=== PATIENT | female | born 2000 | race Caucasian/White ===

== ENCOUNTER 2024-09-13 07:16 | Day surgery (SDC) | payer OTHER ==
[2024-09-13] MEDS ORDERED: ACETAMINOPHEN 500 MG TAB ONE (07:47)
[2024-09-13] MEDS: Ringers Lactate 1,000 ML IV ONE (08:00)
[2024-09-13] MEDS ORDERED: propofoL 200 MG/20 ML VIAL IV ONE (08:55)
[2024-09-13] MEDS ORDERED: MIDAZOLAM HCL 2 MG/2 ML INJ ONE (08:55)
[2024-09-13] MEDS ORDERED: dexAMETHasone 10 MG/ML VIAL ONE (08:55)
[2024-09-13] MEDS ORDERED: FENTANYL CITR 100 MCG/2 ML ONE (08:55)
[2024-09-13] MEDS ORDERED: ONDANSETRON 4 MG/2 ML VIAL ONE (08:55)
[2024-09-13] MEDS ORDERED: LIDOCAINE 1% MPF 5 ML VIAL ONE (08:55)
[2024-09-13] MEDS: BUPIVACAINE 0.5% PF 10 ML VIAL ONE (09:30)
[2024-09-13] MEDS ORDERED: EPINEPHRINE 1 MG/ML VIAL ONE ×2 (10:08→10:38)
[2024-09-13] MEDS: MEPERIDINE HCL 25 MG/ML SYR ONE (10:40)
[2024-09-13] MEDS: HYDROMORPHONE HCL 1 MG/ML INJ ONE (10:41)
--- NOTE | 2024-09-13 10:44 | P.OP ---
Date of Service: 09/13/24 Preoperative diagnosis: Chronic tonsillitis Postoperative diagnosis: Same with tonsil stones Procedure: Tonsillectomy Surgeon: Hallie Kemp MD Nurse Licensed Practical: None Anesthesia: General via endotracheal tube IV fluids: See anesthesia record Estimated blood loss: Minimal, less than 5 mL Specimen: Bilateral tonsils Findings: Chronically inflamed and nodular tonsils. Bleeding at left inferior pole controlled with direct pressure applied for 10 minutes continuously Implants: None Indication: patient with persistent symptoms and findings in spite of good medical management. Details of operation: The patient was brought to the operating room and placed under general anesthesia via oral endotracheal tube. The head of bed was turned 90 degrees. A shoulder roll was placed and the neck was extended. A head drape was applied. The McIvor mouthgag was placed and suspended from the Mckeon stand. The oxygen concentration was confirmed with the anesthesiologist and was less than 40%. Weight-based dexamethasone was administered by the anesthesiologist. The soft palate was palpated and there was no submucous cleft. A red rubber catheter was placed in the nose and the tip withdrawn through the mouth and secured to the head drape for retraction of the soft palate. The tonsils were noted to be moderately enlarged and chronically inflamed with deep crypts and multiple tonsil stones. The left tonsil was grasped with a straight Allis clamp. The Bovie electrocautery was used to incise the mucosa over the anterior pillar and identified the tonsillar capsule. The tonsil was dissected using cautery and blunt dissection until free from soft tissue attachments. A tonsil ball was placed to aid in hemostasis. In the inferior pole there was moderate bleeding and a tonsil sponge soaked with 1-1000 epinephrine was used to apply pressure for 10 minutes continuously. After release of the pressure the area was lightly cauterized and appeared to be hemostatic. The right tonsil was removed in a similar manner. The right tonsil did not have any significant or severe areas of bleeding The oropharynx was irrigated with cold saline. After suctioning, a Ida sump orogastric tube was passed for decompression of the stomach. The red rubber catheter was removed and used to suction the oropharynx, nasopharynx, and nasal cavities. The McIvor mouthgag was removed. There was no evidence of injury to the teeth, lips, or tongue. The mandible was mobile. The patient was then awakened from anesthesia and extubated in the operating room, taken to the recovery room in stable condition. Disposition: The patient will be discharged home later today in the care of their family with written postoperative instructions and appropriate pain medications. They will follow-up in Dr. Kemp's office in approximately 1 month. They are instructed to contact Dr. Kemp's office for any bleeding or other concerns.
[2024-09-13] MEDS: ONDANSETRON 4 MG/2 ML VIAL ONE (10:45)
[2024-09-13] MEDS: HYDROMORPHONE HCL 2 MG/ML inj ONE (10:51)
[2024-09-13] MEDS: MORPHINE 4 MG/ML SYR ONE (11:21)
[2024-09-13 13:30] VITALS: O2SAT 100
[2024-09-13 13:32] VITALS: BP 129/80; TEMP 97
[2024-09-13] MEDS: HYDROCOD 2.5mg-ACETAMIN 108mg/5mL Soln ONE (13:38)
== END 2024-09-13 12:40 | disposition home or self-care (01) ==
LOC: OR 07:16
PROVIDERS: ATTEND Otolaryngology
PROC: 0CTPXZZ Resection of Tonsils, External Approach (ICD-10-PCS; principal; 2024-09-13 08:45)
DX: J35.01 Chronic tonsillitis (principal); J35.8 Other chronic diseases of tonsils and adenoids
CPT/HCPCS: 88304; 42826; J2704; J2003; J2250; J1171 ×2; J3010; J1100; J2175; J0171 ×2; J2405 ×2; J7120

== ENCOUNTER 2024-09-14 22:56 | Emergency (ER) | payer OTHER ==
--- OUTSIDE RECORDS SUMMARY | 2024-09-14 22:59 | XMS REPORT | Continuity of Care Document ---
Author Name Unknown Address [address] [facility] [address] [place] [address] [facility] [address] [place] [address] Care Team Providers Care Regional Marketing Director Name Role Phone Michela Lee Primary Care Physician Logan Attending Clinician Unavailable YANY Attending Clinician Unavailable MICHELA LEE Attending Clinician Unavailable Karuna CARRENO, Reinaldo Banegas Attending Clinician Unavail able JANET KANG Attending Clinician Unavailable JANET KANG Attending Clinician Unavailable Claus VIERA, Cassi Leal Attending Clinician [phone] Janet Kang DO Attending Clinician Drew Monge Attending Clinician Unavailable TOM CARO Attending Clinician Unavailable CAITLIN PEPE Attending Clinician Unavailable RIMA DE DIOS Attending Clinician Unavailable DAISY COLLADO Attending Clinician Unavailab JOSEP Newman VKelechi Attending Clinician Unavailable Logan Admitting Clinician Unavailable YANY Admitting Clinician Unavailable JANET KANG Admitting Clinician Unavailable Janet Kang DO Admitting Clinician Payers Payer Name Policy Type Policy Number Effective Date Expirati on Date Source [facility] [id number] [facility] ([place]) [id number] [place] [id number] 2021 00:00:00 [place] [id number] 2021 00:00:00 Problems Condition Name Condition Details Condition Category Status Onset Date Resolution Date Last Treatment Date Treating Clinician Comments Source Anxiety Anxiety Disease Recurre wve 05-17 00:00: 00 [facility] PTSD (post-trau matic stress disorder) PTSD (post-trau matic stress disorder) Disease Recurre nce 05-17 00:00: 00 [facility] Alcohol intoxicati on Alcohol Intoxicati on Problem Active 05-17 00:00: 00 [facility] Nausea and vomiting Nausea and Vomiting Problem Active 05-17 00:00: 00 [facility] Overdose Overdose Problem Active 05-17 00:00: 00 [facility] Anxiety Anxiety Problem Active 405 00:00: 00 [facility] Viral exanthem Viral Exanthem Problem Active [facility] Pharyngiti s Pharyngiti s Problem Active [facility] Tonsilliti s Tonsilliti s Problem Active [facility] Upper respirator y infection Upper Respirator y Infection Problem Active [facility] Influenza Influenza Problem Active [facility] Fatigue Fatigue Problem Active [facility] Chest pain Chest Pain Problem Active [facility] Allergies, Adverse Reactions, Alerts Allergy Name Allergy Type Status Severity Reaction(s) Onset Date Inactive Date Treating Clinician Comments Source NO KNOWN ALLERGIE S Drug Class Active [facility] Social History Social Habit Start Date Stop Date Quantity Comments Source Gender identity [facility] Sexual orientation [facility] History of Social function 2023-05-17 00:00:00 2023-05-17 00:00:00 [facility] Sex Assigned At 2002 00:00:00 2000 00:00:00 [facility] Smoking Status Start Date Stop Date Source Tobacco smoking consumption unknown [facility] Never Smoker [facility] Medications Ordered Medication Name Filled Medication Name Start Date Stop Date Current Medication? Ordering Clinician Indication Dosage Frequency Signature (SIG) Comments Components Source escitalopra m oxalate (LEXAPRO) 20 mg tablet 05-18 11:59: 07 Yes 20mg Take 1 tablet by mouth in the morning. [facility] nicotine (NICODERM) 14 mg/24 hr patch 1 Patch 05-18 02:45: 00 Yes 1{patch } 1 Patch, Topical, Administer over 24 Hours, Q24H, First dose on Mon05/17/23 at 2145, Until Discontinu ed, Routine [facility] hydrOXYzine (ATARAX) tablet 20 mg 05-18 01:38: 39 Yes 20mg 20 mg, Oral, Q8HPRN, Starting on Mon05/17/23 at 2038, Until Discontinu ed, Routine, Anxiety [facility] KCL (KLOR-CON M20) tablet 40 mEq 05-17 22:30: 00 05-17 22:32 :00 No 40meq 40 mEq, Oral, ONCE, 1 dose, On Mon05/17/23 at 1730, Routine [facility] enoxaparin (LOVENOX) injection 40 mg 05-17 22:00: 00 Yes 40mg 40 mg, Subcutaneo us, DAILY, First dose on Mon05/17/23 at 1700, Until Discontinu ed, Routine [facility] escitalopra m oxalate (LEXAPRO) tablet 20 mg 05-17 17:30: 00 Yes 20mg 20 mg, Oral, DAILY, First dose on Mon05/17/23 at 1230, Until Discontinu ed, Routine [facility] trimethoben zamide (TIGAN) injection 200 mg 05-17 11:37: 45 Yes 200mg 200 mg, Intramuscu lar, Q6HPRN, Starting on Mon05/17/23 at 0637, Until Discontinu ed, Routine, Nausea and Vomiting (N/V) [facility] lactated ringers IV infusion 1,000 mL 05-17 11:30: 00 05-18 06:47 :00 No 1000mL at 999 mL/hr, 1,000 mL, Intravenou s, ONCE, 1 dose, On Mon05/17/23 at 0630, Routine [facility] haloperidol lactate (HALDOL) injection 2 mg 05-17 11:15: 00 05-17 11:29 :00 No 2mg 2 mg, Intramuscu lar, ONCE, 1 dose, On Mon05/17/23 at 0615, Routine [facility] metoclopram dylan HCl (REGLAN) injection 10 mg 05-17 08:37: 00 05-17 08:44 :00 No 10mg 10 mg, Slow IV Push, ONCE, 1 dose, On Mon05/17/23 at 0345, ROMEO [facility] proMETHazin e (PHENERGAN) 25 mg in NaCl 0.9% (NS) 50 mL IV piggyback 05-17 06:47: 00 Yes 25mg 25 mg, IV Piggyback, Q4HPRN, Starting on Mon05/17/23 at 0147, Until Discontinu ed, ROMEO, Nausea and Vomiting (N/V), N/V unresponsi ve to Ondansetro n [facility] metoclopram dylan HCl (REGLAN) injection 10 mg 05-17 06:30: 00 05-17 06:32 :00 No 10mg 10 mg, Slow IV Push, ONCE, 1 dose, On Mon05/17/23 at 0130, ROMEO [facility] ondansetron (ZOFRAN (PF)) injection 4 mg 05-17 05:45: 00 05-17 05:33 :00 No 4mg 4 mg, Slow IV Push, ONCE, 1 dose, On Mon05/17/23 at 0045, ROMEO [facility] NaCl 0.9% (NS) IV infusion 1,000 mL 05-17 02:45: 00 Yes 1000mL at 999 mL/hr, Intravenou s, CONTINUOUS , Starting on Mon05/16/23 at 2145, Until Discontinu ed, Routine [facility] ondansetron (ZOFRAN (PF)) injection 4 mg 05-17 02:00: 00 05-17 01:45 :00 No 4mg 4 mg, Slow IV Push, ONCE, 1 dose, On Mon05/16/23 at 2100, ROMEO [facility] activated charcoal-so rbitoL (ACTIDOSE/S ORBITAL) 25 gram/120 mL suspension 50 g 05-17 01:45: 00 05-17 03:00 :00 No 50g 50 g, Oral, ONCE, 1 dose, On Mon05/16/23 at 2045, [facility] venlafaxine ER 75 mg capsule,ext ended release 24 hr TAKE 1 CAPSULE BY MOUTH EVERY DAY venlafaxine ER 75 mg capsule,ext ended release 24 hr TAKE 1 CAPSULE BY MOUTH EVERY DAY No venlafaxin e ER 75 mg capsule,ex tended release 24 hr TAKE 1 CAPSULE BY MOUTH EVERY DAY [facility] amoxicillin 875 mg tablet Take 1 tablet every 12 hours by oral route for 10 days. amoxicillin 875 mg tablet Take 1 tablet every 12 hours by oral route for 10 days. No 1 Q12H amoxicilli n 875 mg tablet Take 1 tablet every 12 hours by oral route for [address] [facility] [place] 1/20 (28) 1 mg-20 mcg (21)/75 mg (7) tablet TAKE 1 TABLET BY MOUTH EVERY DAY DIRECTED [place] 1/20 (28) 1 mg-20 mcg (21)/75 mg (7) tablet TAKE 1 TABLET BY MOUTH EVERY DAY DIRECTED No [place] 1/20 (28) 1 mg-20 mcg (21)/75 mg (7) tablet TAKE 1 TABLET BY MOUTH EVERY DAY DIRECTED [facility] venlafaxine ER 75 mg capsule,ext ended release 24 hr TAKE 1 CAPSULE BY MOUTH EVERY DAY venlafaxine ER 75 mg capsule,ext ended release 24 hr TAKE 1 CAPSULE BY MOUTH EVERY DAY No venlafaxin e ER 75 mg capsule,ex tended release 24 hr TAKE 1 CAPSULE BY MOUTH EVERY DAY [facility] Immunizations Ordered Immunization Name Filled Immunization Name Date Status Comments Source meningococcal MCV4P meningococcal MCV4P 11:01:00 Completed [facility] Tdap Tdap 2015-02-02 16:30:00 Completed [facility] varicella varicella 2015-02-02 16:30:00 Completed [facility] HPV9 HPV9 Unknown Completed [facility] meningococcal MCV4P - ML meningococcal MCV4P - ML Unknown Completed [facility] varicella - ML varicella - ML Unknown Completed [facility] DTaP, unspecified formulation - ML DTaP, unspecified formulation - ML Unknown Completed [facility] Tdap - ML Tdap - ML Unknown Completed [facility] vaccinia immune globulin - ML vaccinia immune globulin - ML Unknown Completed [facility] Hep A, ped/adol, 2 dose - ML Hep A, ped/adol, 2 dose - ML Unknown Completed [facility] IPV - ML IPV - ML Unknown Completed [facility] Hib (HbOC) - ML Hib (HbOC) - ML Unknown Completed [facility] MMR - ML MMR - ML Unknown Completed [facility] pneumococcal conjugate PCV 7 - ML pneumococcal conjugate PCV 7 - ML Unknown Completed [facility] Hep B, adolescent or pediatric - ML Hep B, adolescent or pediatric - ML Unknown Completed [facility] Hep B, unspecified formulation - ML Hep B, unspecified formulation - ML Unknown Completed [facility] Vital Signs Vital Name Observation Time Observation Value Comments S ource BP Diastolic 2024-09-02 00:00:00 71 mm[Hg] [facility] BMI (Body Mass Index) 2024-09-02 00:00:00 22.7 kg/m2 [facility] BP Systolic 2024-09-02 00:00:00 109 mm[Hg] [facility] Height 2024-09-02 00:00:00 65 [in_i] [facility] Body Weight 2024-09-02 00:00:00 2183 [oz_av] [facility] BP Systolic 2024-04-30 00:00:00 102 mm[Hg] [facility] BMI (Body Mass Index) 2024-04-30 00:00:00 22.4 kg/m2 [facility] Body Weight 2024-04-30 00:00:00 134.8 [lb_av] [facility] Height 2024-04-30 00:00:00 65 [in_i] [facility] BP Diastolic 2024-04-30 00:00:00 67 mm[Hg] [facility] BMI (Body Mass Index) 2024-01-09 00:00:00 22.5 kg/m2 [facility] Body Weight 2024-01-09 00:00:00 2160 [oz_av] [facility] BP Systolic 2024-01-09 00:00:00 123 mm[Hg] [facility] Height 2024-01-09 00:00:00 65 [in_i] [facility] BP Diastolic 2024-01-09 00:00:00 73 mm[Hg] [facility] BMI (Body Mass Index) 2023-11-08 00:00:00 22.3 kg/m2 [facility] BP Systolic 2023-11-08 00:00:00 130 mm[Hg] [facility] Height 2023-11-08 00:00:00 65 [in_i] [facility] BP Diastolic 2023-11-08 00:00:00 83 mm[Hg] [facility] Body Weight 2023-11-08 00:00:00 134 [lb_av] [facility] BMI (Body Mass Index) 2023-09-27 00:00:00 23.1 kg/m2 [facility] BP Systolic 2023-09-27 00:00:00 107 mm[Hg] [facility] Height 2023-09-27 00:00:00 65 [in_i] [facility] BP Diastolic 2023-09-27 00:00:00 69 mm[Hg] [facility] Body Weight 2023-09-27 00:00:00 2224 [oz_av] [facility] BP Diastolic 2023-09-18 00:00:00 78 mm[Hg] [facility] Body Weight 2023-09-18 00:00:00 151 [lb_av] [facility] Height 2023-09-18 00:00:00 65 [in_i] [facility] BMI (Body Mass Index) 2023-09-18 00:00:00 25.1 kg/m2 [facility] BP Systolic 2023-09-18 00:00:00 119 mm[Hg] [facility] Height 2023-08-28 00:00:00 65 [in_i] [facility] BMI (Body Mass Index) 2023-08-28 00:00:00 24.5 kg/m2 [facility] BP Diastolic 2023-08-28 00:00:00 63 mm[Hg] [facility] Body Weight 2023-08-28 00:00:00 2352 [oz_av] [facility] BP Systolic 2023-08-28 00:00:00 97 mm[Hg] [facility] BP Diastolic 2023-05-25 00:00:00 75 mm[Hg] [facility] Height 2023-05-25 00:00:00 65 [in_i] [facility] BMI (Body Mass Index) 2023-05-25 00:00:00 25.3 kg/m2 [facility] BP Systolic 2023-05-25 00:00:00 117 mm[Hg] [facility] Body Weight 2023-05-25 00:00:00 2432 [oz_av] [facility] Heart rate 2023-05-18 15:00:00 96 /min [facility] Respiratory rate 2023-05-18 15:00:00 24 /min [facility] Oxygen saturation in Arterial blood by Pulse oximetry 2023-05-18 15:00:00 98 /min [facility] Systolic blood pressure 2023-05-18 13:00:00 133 mm[Hg] [facility] Diastolic blood pressure 2023-05-18 13:00:00 91 mm[Hg] [facility] Body temperature 2023-05-18 13:00:00 36.61 Arlet [facility] Body height 2023-05-17 01:35:00 162.6 cm [facility] Body weight 2023-05-17 01:35:00 63.504 kg [facility] BMI 2023-05-17 01:35:00 24.03 kg/m2 [facility] BP Diastolic 2023-04-24 00:00:00 86 mm[Hg] [facility] Height 2023-04-24 00:00:00 65 [in_i] [facility] BMI (Body Mass Index) 2023-04-24 00:00:00 24.1 kg/m2 [facility] BP Systolic 2023-04-24 00:00:00 129 mm[Hg] [facility] Body Weight 2023-04-24 00:00:00 145 [lb_av] [facility] BP Diastolic 2022-10-20 00:00:00 74 mm[Hg] [facility] Height 2022-10-20 00:00:00 65 [in_i] [facility] BMI (Body Mass Index) 2022-10-20 00:00:00 21 kg/m2 [facility] BP Systolic 2022-10-20 00:00:00 113 mm[Hg] [facility] Body Weight 2022-10-20 00:00:00 126 [lb_av] [facility] BP Diastolic 2022-06-21 00:00:00 79 mm[Hg] [facility] Height 2022-06-21 00:00:00 65 [in_i] [facility] BMI (Body Mass Index) 2022-06-21 00:00:00 18.8 kg/m2 [facility] BP Systolic 2022-06-21 00:00:00 119 mm[Hg] [facility] Body Weight 2022-06-21 00:00:00 113 [lb_av] [facility] BP Diastolic 2022-03-03 00:00:00 65 mm[Hg] [facility] Height 2022-03-03 00:00:00 65 [in_i] [facility] BMI (Body Mass Index) 2022-03-03 00:00:00 20.1 kg/m2 [facility] BP Systolic 2022-03-03 00:00:00 118 mm[Hg] [facility] Body Weight 2022-03-03 00:00:00 1936 [oz_av] [facility] Height 2022-02-15 00:00:00 65 [in_i] [facility] BMI (Body Mass Index) 2022-02-15 00:00:00 19.6 kg/m2 [facility] Body Weight 2022-02-15 00:00:00 118 [lb_av] [facility] Height 2021-11-09 00:00:00 65 [in_i] [facility] BP Diastolic 2021-10-19 00:00:00 68 mm[Hg] [facility] Height 2021-10-19 00:00:00 65 [in_i] [facility] BMI (Body Mass Index) 2021-10-19 00:00:00 19 kg/m2 [facility] BP Systolic 2021-10-19 00:00:00 101 mm[Hg] [facility] Body Weight 2021-10-19 00:00:00 114 [lb_av] [facility] BP Diastolic 2021-05-25 00:00:00 68 mm[Hg] [facility] Height 2021-05-25 00:00:00 65 [in_i] [facility] BMI (Body Mass Index) 2021-05-25 00:00:00 19 kg/m2 [facility] BP Systolic 2021-05-25 00:00:00 107 mm[Hg] [facility] Body Weight 2021-05-25 00:00:00 1827 [oz_av] [facility] BP Diastolic 2021-04-28 00:00:00 61 mm[Hg] [facility] Height 2021-04-28 00:00:00 65 [in_i] [facility] BMI (Body Mass Index) 2021-04-28 00:00:00 18.8 kg/m2 [facility] BP Systolic 2021-04-28 00:00:00 103 mm[Hg] [facility] Body Weight 2021-04-28 00:00:00 1808 [oz_av] [facility] BP Systolic 2021-02-08 00:00:00 97 mm[Hg] [facility] Body Weight 2021-02-08 00:00:00 114.2 [lb_av] Shira [facility] BP Diastolic 2021-02-08 00:00:00 72 mm[Hg] [facility] Height 2021-02-08 00:00:00 65 [in_i] [facility] BMI (Body Mass Index) 2021-02-08 00:00:00 19 kg/m2 [facility] BP Diastolic 2020-12-30 00:00:00 69 mm[Hg] [facility] Height 2020-12-30 00:00:00 65 [in_i] [facility] BMI (Body Mass Index) 2020-12-30 00:00:00 18.6 kg/m2 [facility] BP Systolic 2020-12-30 00:00:00 111 mm[Hg] [facility] Body Weight 2020-12-30 00:00:00 1792 [oz_av] [facility] BP Diastolic 2020-02-17 00:00:00 82 mm[Hg] [facility] Height 2020-02-17 00:00:00 65 [in_i] Freddie [facility] BMI (Body Mass Index) 2020-02-17 00:00:00 19.2 kg/m2 [facility] BP Systolic 2020-02-17 00:00:00 125 mm[Hg] Tawanda [facility] Body Weight 2020-02-17 00:00:00 115.2 [lb_av] M [facility] BP Diastolic 2019-08-01 00:00:00 71 mm[Hg] [facility] Height 2019-08-01 00:00:00 65 [in_i] [facility] BMI (Body Mass Index) 2019-08-01 00:00:00 20.1 kg/m2 [facility] BP Systolic 2019-08-01 00:00:00 109 mm[Hg] [facility] Body Weight 2019-08-01 00:00:00 1936 [oz_av] [facility] Procedures Procedure Date / Time Performed Performing Clinician Source MAGNESIUM 2023-05-18 10:48:00 Tiffanie Mcduffie [facility] BASIC METABOLIC PANEL (NA, K, CL, CO2, GLUCOSE, BUN, CREATININE, CA) 2023-05-18 10:48:00 Tiffanie Mcduffie [facility] ACETAMINOPHEN 2023-05-18 10:48:00 Tiffanie Mcduffie [facility] BILI UNCONJUGATED/BILI CONJUG 2023-05-18 01:29:00 Cassi Devlin [facility] COMP. METABOLIC PANEL ([id number]) 2023-05-18 01:29:00 Cassi Devlin [facility] ACETAMINOPHEN 2023-05-18 01:29:00 Cassi Devlin [facility] HEPATIC FUNCTION PANEL ([id number]) (ALB,T.PRO,BILI T,BU/BC,ALT,AST,ALK PHOS) 2023-05-17 20:12:00 Dawit Crane [facility] BASIC METABOLIC PANEL (NA, K, CL, CO2, GLUCOSE, BUN, CREATININE, CA) 2023-05-17 20:12:00 Dawit Crane [facility] ACETAMINOPHEN 2023-05-17 20:11:00 Cassi Devlin [facility] PROTHROMBIN TIME / INR 2023-05-17 20:11:00 Marcelina Devlin [facility] PROTHROMBIN TIME / INR 2023-05-17 13:14:00 Luis Crane [facility] MRSA / MSSA SCREEN BY PCR, NARES 2023-05-17 12:28:00 Jack Deal [facility] OSMOLALITY, SERUM OR PLASMA 2023-05-17 12:28:00 Royce Txglenroy [facility] COMP. METABOLIC PANEL ([id number]) 2023-05-17 12:28:00 Jack Deal [facility] TEST, URINE 2023-05-17 10:36:00 Jack Mccoy [facility] URINE DRUG (IMMUNOASSAY) - COMPREHENSIVE DRUG SCREEN W/O REFLEX 2023-05-17 05:29:00 Linh [facility] CREATINE KINASE 2023-05-17 05:18:00 [facility] 2023-05-17 05:18:00 Cassi Devlin [facility] SERUM DRUG (IMMUNOASSAY) - COMPREHENSIVE DRUG SCREEN 2023-05-17 03:39:00 Cassi Devlin [facility] HB ECG ROUTINE & RHYTHM STRIP 2023-05-17 01:40:37 Linh [facility] TEST, SERUM 2023-05-17 01:37:00 Fredrick Melton [facility] COMP. METABOLIC PANEL ([id number]) 2023-05-17 01:37:00 Linh [facility] SALICYLATE 2023-05-17 01:37:00 Eitan Melton [facility] ETHANOL 2023-05-17 01:37:00 Eitan Melton [facility] CBC WITH DIFF 2023-05-17 01:37:00 Eitan Melton [facility] PROTHROMBIN TIME / INR 2023-05-17 01:37:00 Jay Melton [facility] CONSENT/REFUSAL FOR DIAGNOSIS AND TREATMENT 2023-05-17 01:29:49 Doctor Unassigned, [place] [facility] NOTICE OF PRIVACY PRACTICES 2023-05-17 01:29:29 Doctor Unassigned, [place] [facility] Encounters Start Date/Time End Date/Time Encounter Type Admission Type Attending [facility] Facility Care Department Encounter ID Source 2024-09-02 00:00:00 2024-09-02 00:00:00 Michela Lee, STUDENT SERVICES REP: [address], [address], [place] [address] , Ph. MM[facility] [id number] [facility] 2024-04-30 00:00:00 2024-04-30 00:00:00 Tom Caro, STUDENT SERVICES REP: [address] [place] [address] , [facility]. [facility] SUPPORT WORKER [id number] [facility] 2024-01-09 00:00:00 2024-01-09 00:00:00 Outpatient Shield MMG MMG [id number] [facility] 2024-01-09 00:00:00 2024-01-09 00:00:00 Michela Lee, STUDENT SERVICES REP: [address], [address], [place] [address] , Ph. MMG [facility] [id number] [facility] 2024-01-08 00:00:00 2024-01-08 00:00:00 Outpatient Shield [facility]G MMG [id number] [facility] 2023-12-16 00:00:00 2023-12-16 00:00:00 Outpatient Shield MMG MMG [id number] [facility] 2023-11-11 00:00:00 2023-11-11 00:00:00 [place] [id number] [facility] 2023-11-08 00:00:00 2023-11-08 00:00:00 Outpatient LISTER[facility]MELI [facility] [id number] [facility] 2023-11-08 00:00:00 2023-11-08 00:00:00 Tom Caro, STUDENT SERVICES REP: [address] [place] [address] , Ph. [facility] SUPPORT WORKER [id number] [facility] 2023-10-18 00:00:00 2023-10-18 00:00:00 Outpatient LISTER_MELI [facility] [id number] [facility] 2023-09-27 00:00:00 2023-09-27 00:00:00 [place] [id number] [facility] 2023-09-27 00:00:00 2023-09-27 00:00:00 [place] [id number] [facility] 2023-09-27 00:00:00 2023-09-27 00:00:00 Michela Lee, STUDENT SERVICES REP: [address], [address], [place] [address] , Ph. [facility] [id number] [facility] 2023-09-26 00:00:00 2023-09-26 00:00:00 Outpatient Shield MMG MMG [id number] [facility] 2023-09-18 00:00:00 2023-09-18 00:00:00 Outpatient LISTER_MELI [facility] [id number] [facility] 2023-09-18 00:00:00 2023-09-18 00:00:00 Tom Caro, STUDENT SERVICES REP: [address], [place] [address] , Ph. [facility] SUPPORT WORKER [id number] [facility] 2023-09-16 00:00:00 2023-09-16 00:00:00 Outpatient LISTER_MELI [facility] [id number] [facility] 2023-09-15 00:00:00 2023-09-15 00:00:00 Outpatient LISTER_MELI [facility] [id number] [facility] 2023-09-01 00:00:00 2023-09-01 00:00:00 Outpatient Shield [facility] [place]G [id number] [facility] 2023-08-28 00:00:00 2023-08-28 00:00:00 Outpatient Shield [facility]G MMG [id number] [facility] 2023-08-28 00:00:00 2023-08-28 00:00:00 Michela Lee, STUDENT SERVICES REP: [address], [address], [place] [address] , Ph. [facility] [id number] [facility] 2023-06-06 00:00:00 2023-06-06 00:00:00 Outpatient Shield [facility]G MMG [id number] [facility] 2023-05-31 09:55:00 2023-05-31 09:55:00 Outpatient MICHELA TALBERT [employer] [id number] [facility] 2023-05-25 11:27:00 2023-05-25 11:27:00 Outpatient MICHELA TALBERT [employer] [employer] [id number] [facility] 2023-05-25 00:00:00 2023-05-25 00:00:00 [place] [id number] [facility] 2023-05-25 00:00:00 2023-05-25 00:00:00 Michela Lee, STUDENT SERVICES REP: [address], [address], [place] [address] , Ph. [facility] [id number] [facility] 2023-05-19 00:00:00 2023-05-19 00:00:00 Transition of Care Reinaldo Beckman [facility] [id number] [facility] 2023-05-16 20:24:00 2023-05-18 11:57:00 Inpatient U JANET KANG [facility] [id number] [facility] 2023-05-16 20:24:00 2023-05-18 11:57:00 Hospital Encounter Cassi Devlin Shiwan [facility] [id number] [facility] 2023-05-03 00:00:00 2023-05-03 00:00:00 [place] [id number] [facility] 2023-04-24 00:00:00 2023-04-24 00:00:00 Outpatient GORDO_ROMARIO [facility] [id number] [facility] 2023-04-24 00:00:00 2023-04-24 00:00:00 Tom Caro, STUDENT SERVICES REP: [address], [place] [address] , Ph. NECLARISA [facility] SUPPORT WORKER [id number] [facility] 2022-10-20 00:00:00 2022-10-20 00:00:00 Outpatient LISTER_MELI [facility] [id number] [facility] 2022-10-20 00:00:00 2022-10-20 00:00:00 Tom Caro, STUDENT SERVICES REP: [address], [place] [address] , Ph. [facility] SUPPORT WORKER [id number] [facility] 2022-06-21 00:00:00 2022-06-21 00:00:00 Outpatient LISTER_MELI [facility] [id number] [facility] 2022-06-21 00:00:00 2022-06-21 00:00:00 Tom Caro, STUDENT SERVICES REP: [address], [place] [address] , Ph. [facility] - [facility] SUPPORT WORKER [id number] [facility] 2022-03-03 03:18:00 2022-03-03 03:18:00 Outpatient Shield [facility] [id number] [facility] 2022-03-03 00:00:00 2022-03-03 00:00:00 Michela Lee, STUDENT SERVICES REP: [address] [address] , Ph. [facility] [id number] [facility] 2022-03-02 04:02:00 2022-03-02 04:02:00 [facility] [id number] [facility] 2022-02-15 05:32:00 2022-02-15 05:32:00 Outpatient LISTER_MELI [facility] [id number] [facility] 2022-02-15 00:00:00 2022-02-15 00:00:00 Tom Caro, STUDENT SERVICES REP: [address], [place] [address] , Ph. [facility] HOP - [facility] SUPPORT WORKER [id number] [facility] 2021-11-24 03:58:00 2021-11-24 03:58:00 Outpatient LISTER_MELI [facility] [id number] [facility] 2021-11-24 00:00:00 2021-11-24 00:00:00 Tom Caro, STUDENT SERVICES REP: [address], [place] [address] , Ph. [facility] HOP - [facility] SUPPORT WORKER [id number] [facility] 2021-11-09 01:59:00 2021-11-09 01:59:00 Outpatient Shield [facility] [id number] [facility] 2021-11-09 01:59:00 2021-11-09 01:59:00 Outpatient Shield [facility] [id number] [facility] 2021-11-09 00:00:00 2021-11-09 00:00:00 Michela Lee, STUDENT SERVICES REP: [address] [address] , Ph. [facility] [id number] [facility] 2021-11-01 05:47:00 2021-11-01 05:47:00 Outpatient LISTER_MELI [facility] [id number] [facility] 2021-11-01 05:47:00 2021-11-01 05:47:00 Outpatient LISTER_MELI [facility] [id number] [facility] 2021-10-22 10:50:00 2021-10-22 10:50:00 Outpatient GORDO_GENIEI [facility] [id number] [facility] 2021-10-19 02:31:00 2021-10-19 02:31:00 Outpatient GORDO_GENIEI [facility] [id number] [facility] 2021-10-19 00:00:00 2021-10-19 00:00:00 Tom Crao, STUDENT SERVICES REP: [address], [place] [address] , Ph. [facility] SUPPORT WORKER [id number] [facility] 2021-10-17 07:02:00 2021-10-17 07:02:00 Outpatient GORDO_GENIEI [facility] [id number] [facility] 2021-08-10 12:57:00 2021-08-10 12:57:00 Outpatient Shield [facility] [id number] [facility] 2021-07-03 01:02:00 2021-07-03 01:02:00 [place] [id number] [facility] 2021-05-28 01:32:00 2021-05-28 01:32:00 [place] [id number] [facility] 2021-05-28 01:32:00 2021-05-28 01:32:00 Outpatient Shield MMG MMG [id number] [facility] 2021-05-25 10:29:00 2021-05-25 10:29:00 [place] [id number] [facility] 2021-05-25 00:00:00 2021-05-25 00:00:00 Michela Lee, STUDENT SERVICES REP: [address] [facility] [address], [place] [address] , Ph. [facility] [id number] [facility] 2021-04-28 10:43:00 2021-04-28 10:43:00 Outpatient Shield MMG [facility] [id number] [facility] 2021-04-28 00:00:00 2021-04-28 00:00:00 Michela Lee, STUDENT SERVICES REP: [address], [place] [address] , Ph. [facility] [id number] [facility] 2021-02-08 02:36:00 2021-02-08 02:36:00 Outpatient GORDO_ROMARIO [facility] [id number] [facility] 2021-02-08 00:00:00 2021-02-08 00:00:00 Tom Caro, STUDENT SERVICES REP: [address], [place] [address] , Ph. [facility] SUPPORT WORKER [id number] [facility] 2020-12-30 11:47:00 2020-12-30 11:47:00 [facility] [id number] [facility] 2020-12-30 00:00:00 2020-12-30 00:00:00 Michela Lee, STUDENT SERVICES REP: [address], [place] [address] , Ph. [facility] [id number] [facility] 2020-12-14 15:43:00 2020-12-14 15:43:00 Outpatient Drew Valle [employer] [id number] [facility] 2020-10-14 10:49:00 2020-10-14 10:49:00 [facility] [id number] [facility] 2020-09-23 02:22:00 2020-09-23 02:22:00 Outpatient Shield MMG MMG [id number] [facility] 2020-08-24 04:30:00 2020-08-24 04:30:00 Outpatient Shield MMG MMG [id number] [facility] 2020-07-22 10:35:00 2020-07-22 10:35:00 Outpatient Shield MMG MMG [id number] [facility] 2020-07-19 02:47:00 2020-07-19 02:47:00 Outpatient Shield MMG MMG [id number] [facility] 2020-06-14 12:11:00 2020-06-14 12:11:00 Outpatient Shield MMG MMG [id number] [facility] 2020-05-10 12:02:00 2020-05-10 12:02:00 Outpatient Shield MMG MMG [id number] [facility] 2020-05-06 12:49:00 2020-05-06 12:49:00 Outpatient LISTER_MELI [facility] [id number] [facility] 2020-04-01 12:38:00 2020-04-01 12:38:00 Outpatient LISTER_MELI [facility] [id number] [facility] 2020-03-31 02:48:00 2020-03-31 02:48:00 Outpatient LISTER_MELI [facility] [id number] [facility] 2020-03-01 12:05:00 2020-03-01 12:05:00 Outpatient Shield MMG MMG [id number] [facility] 2020-02-26 01:17:00 2020-02-26 01:17:00 Outpatient LISTER_MELI [facility] [id number] [facility] 2020-02-24 06:30:00 2020-02-24 06:30:00 Outpatient Shield MMG MMG [id number] [facility] 2020-02-24 00:00:00 2020-02-24 00:00:00 Michela Lee, STUDENT SERVICES REP: [address], [place] [address] , Ph. [facility] [id number] [facility] 2020-02-17 05:57:00 2020-02-17 05:57:00 Outpatient GORDO_ROMARIO [facility] [id number] [facility] 2020-02-17 00:00:00 2020-02-17 00:00:00 Tom Caro, STUDENT SERVICES REP: [address] [place] [address] , Ph. [facility] SUPPORT WORKER [id number] [facility] 2019-08-01 13:31:00 2019-08-01 13:31:00 Outpatient MICHELA TALBERT [employer] [id number] [facility] 2019-08-01 00:00:00 2019-08-01 00:00:00 Michela Lee, STUDENT SERVICES REP: [address], [place] [address] , Ph. [facility] [id number] [facility] 2017-10-16 09:00:00 2017-10-16 09:00:00 Outpatient TOM HILL [employer] [employer] [id number] [facility] 2017-07-25 15:54:00 2017-07-25 15:54:00 Outpatient CAITLIN HERNANDEZ [employer] [employer] [id number] [facility] 2015-11-03 10:31:00 2015-11-03 10:31:00 Outpatient RIMA LACEY [employer] [employer] [id number] [facility] 2014-08-05 15:27:00 2014-08-05 15:27:00 Outpatient MICHELA TALBERT [employer] [employer] [id number] [facility] 2011-07-27 16:09:00 2011-07-27 16:09:00 Outpatient RIMA HATHAWAY [employer] [employer] [facility] [id number] [facility] 2009-04-07 11:18:00 2009-04-07 11:18:00 Outpatient RIMA HATHAWAY [employer] [employer] [facility] [id number] [facility] 2009-02-27 15:33:00 2009-02-27 15:33:00 Outpatient RIMA HATHAWAY [facility] [employer] [facility] [id number] [facility] 2008-02-09 07:46:00 2008-02-09 10:15:00 Emergency ER DAISY COLLADO [employer] [employer] [id number] [facility] 2006-08-23 15:36:00 2006-08-23 15:36:00 Outpatient JOSEP JACKSON [employer] [employer] [id number] [facility] 2005-08-24 19:42:00 2005-08-24 22:10:00 Emergency ER DAISY COLLADO [employer] [employer] [id number] [facility] Results Test Description Test Time Test Comments Results Result Co mments Source [facility] [id number] 00:00:00* Test Item Value Reference Range Interpretation Comme nts Interpretation and review of laboratory results (test code = 12033-1) Note Report (test code = 75024-5) . [facility] ProgramChoriogonadotropin.intact+Beta subunit [Units/volume] in Serum or Dikcpw0072-93-74 00:00:00* Test Item Value Reference Range Interpretation Comme nts Choriogonadotropin.intact+Be ta subunit [Units/volume] in Serum or Plasma (test code = 15916-5) <1 [facility] ProgramReagin Ab [Presence] in Serum by R 2023-11-09 00:00:00* Test Item Value Reference Range Interpretation Comme nts Reagin Ab [Presence] in Seru m by RPR (test code = 79043-5) non reactive non reactive [facility] tests - Meaningful Use [id number] 00:00:00* Test Item Value Reference Range Interpretation Comme nts HIV 1+2 Ab+HIV1 p24 Ag [Presence] in Serum or Plasma by Immunoassay (test code = 51369-8) non reactive non reactive [facility]hamHepatitis B virus surface Ag [Presence] in Serum or Plasma by Tdeolcvcdee0023-54-78 00:00:00* Test Item Value Reference Range Interpretation Comme nts Hepatitis B virus surface Ag [Presence] in Serum or Plasma by Immunoassay (test code = 5196-1) negative negative [facility]regnancy test, pzsrp4291-61-86 15:44:00* Test Item Value Reference Range Interpretation Comme nts HCG (test code = HCG) negative [facility]ham[facility]id strep group A, sfvotj0899-31-00 09:14:49* Test Item Value Reference Range Interpretation Comme nts Strep Result (test code = St rep Result) negative [facility] HospitalInfluenza virus A and B and SARS-CoV+SARS-CoV-2 (COVID- 19) Ag panel - Upper respiratory specimen byRapid aefswqhafex7356-00-11 09:14:32 * Test Item Value Reference Range Interpretation Comme nts RAPID SARS COV (test code = RAPID SARS COV) negative RAPID FLU A (test code = RAP ID FLU A) negative RAPID FLU B (test code = RAP ID FLU B) negative [facility] Groupthyroid stimulating hormone [id number] 15:11:00* Test Item Value Reference Range Interpretation Comme nts thyroid stimulating hormone L (test code = thyroid stimulating hormone L) 1.24 uIU/mL 0.36-3.74 [facility] Hospitalvit B12 folate lyahg0982-07-72 15:08:00* Test Item Value Reference Range Interpretation Comme nts vitamin B12 (test code = vit rodarte B12) 1122 pg/mL 211-946 H folate (test code = folate) 17.63 NG/mL 4.78-24.2 [facility] HospitalComprehensive metabolic 2000 panel - Serum or Plasma 2023-05-25 14:56:00* Test Item Value Reference Range Interpretation Comme nts glucose (test code = glucose) 102 mg/dL 74-106 blood urea nitrogen (test co de = blood urea nitrogen) 14 mg/dL 6-20 osmolality calculated,serum (test code = osmolality calculated,serum) 273 mOsm/kg 280-300 L creatinine (test code = creatinine) 0.81 mg/dL 0.50-0.90 glomerular filtration rate ( test code = glomerular filtration rate) > 60.00 BUN/creatinine ratio (test c ode = BUN/creatinine ratio) 17.3 12.0-20.0 sodium level (test code = so dium level) 136 mmol/L 135-145 potassium level (test code = potassium level) 4.7 mmol/L 3.5-5.2 chloride level (test code = chloride level) 102 mmol/L 98-108 CO2 (test code = CO2) 27 mmol/L 21-32 anion gap (test code = anion gap) 11.7 mEq/L 12.0-20.0 L calcium level (test code = calcium level) 9.8 mg/dL 8.6-10.0 total protein (test code = t otal protein) 7.7 g/dL 6.6-8.7 albumin (test code = albumin) 5.0 g/dL 3.5-5.2 globulin (test code = globulin) 2.7 g/dL 1.5-4.5 A/G ratio (test code = A/G ratio) 1.9 >1.0 bilirubin,total (test code = bilirubin,total) 0.5 mg/dL 0.0-1.2 AST/SGOT (test code = AST/SGOT) 42 U/L 15-32 H ALT/SGPT (test code = ALT/SGPT) 154 U/L 0-33 H alkaline phosphatase, total (test code = alkaline phosphatase, total) 109 U/L 35-105 H [facility] [id number] 14:56:00* Test Item Value Reference Range Interpretation Comme nts salicylate level (test code = salicylate level) < 0.5 2.8-20.0 L [facility] HospitalAcetaminophen [Mass/volume] in Serum or Quklpd6877-94-86 14:56:00* Test Item Value Reference Range Interpretation Comme nts acetaminophen level (test co de = acetaminophen level) < 5.2 10.0-30.0 L [facility] aghqx0384-20-03 14:56:00* Test Item Value Reference Range Interpretation Comme nts alcohol level (test code = a lcohol level) < 10.0 0.00-10.1 [facility]12 panel drug [id number] 14:31:00* Test Item Value Reference Range Interpretation Comme nts drug screen note (test code = drug screen note) . [facility] W Auto Differential panel - [id number] 14:26:00 * Test Item Value Reference Range Interpretation Comme nts white blood count (test code = white blood count) 6.0 K/uL 4.0-11.5 red blood count (test code = red blood count) 4.45 M/uL 3.80-5.20 hemoglobin (test code = hemoglobin) 13.7 g/dL 10.5-15.7 hematocrit (test code = hematocrit) 42.4 % 34.0-50.0 mean corpuscular volume (vidya t code = mean corpuscular volume) 95.3 fL 86.0-100.0 mean corpuscular hemoglobin (test code = mean corpuscular hemoglobin) 30.8 pg 26.2-33.4 mean corpuscular HGB conc (t est code = mean corpuscular HGB conc) 32.3 g/dL 30.0-34.0 red cell distribution width (test code = red cell distribution width) 12.5 % 12.0-15.5 platelet count (test code = platelet count) 372 K/uL 165-450 mean platelet volume (test c ode = mean platelet volume) 9.9 fL 9.4-12.6 neutrophils % (test code = neutrophils %) 61.5 % 44.4-80.1 Ig% (test code = Ig%) 0.5 % 0.0-0.4 H lymphocyte% (test code = lymphocyte%) 23.9 % 10.0-50.0 mono % (test code = mono %) 11.4 % 3.6-12.0 eos % (test code = eos %) 2.0 % 0.0-5.4 basophil % (test code = baso mercy %) 0.7 % 0.1-1.2 absolute neutrophil count (t est code = absolute neutrophil count) 3.71 K/uL 1.56-6.13 Ig# (test code = Ig#) 0.03 K/uL 0.00-0.03 lymph # (test code = lymph #) 1.44 K/uL 1.18-3.74 mono # (test code = mono #) 0.69 K/uL 0.24-0.86 eos # (test code = eos #) 0.12 K/uL 0.04-0.36 basophil # (test code = baso mercy #) 0.04 K/uL 0.01-0.08 NRBC% (test code = NRBC%) 0 /100 WBC 0-0.2 NRBC# (test code = NRBC#) 0 K/uL [facility] HospitalAyibdWQRZPYLQVGLZU2780-06-90 12:23:50* Test Item Value Reference Range Interpretation Comme nts ACETAMINOP (test code = 8639670781) 10.0-30.0 L BERNIE (test code = BERNIE) Toxic: Greater reji n 200 ug/mL @ 4 hour post ingestion or greater than 50 ug/mL @ 12 hour post ingestion Lab Interpretation (test code = 12833-8) Abnormal [facility]2023-07-13 12:20:48* Test Item Value Reference Range Interpretation Comme nts MAGNESIUM (test code = 5791630119) 1.8 mg/dL 1.7-2.4 Lab Interpretation (test cod e = 08426-0) Normal [facility] METABOLIC PANEL (NA, K, CL, CO2, GLUCOSE, BUN, CREATININE, CA)2023-05-18 12:20:48* Test Item Value Reference Range Interpretation Comme nts NA (test code = 8889052104) 136 mmol/L 135-145 K (test code = 2081517785) 3.8 mmol/L 3.5-5.0 CL (test code = 6534481658) 108 mmol/L 98-108 CO2 TOTAL (test code = 8653707255) 21 mmol/L 23-31 L AGAP (test code = 8858623286) 7 2-16 BUN (test code = 0118270066) 8 mg/dL 7-23 GLUCOSE (test code = 1822153635) 91 mg/dL 70-110 CREATININE (test code = 6696846019) 0.64 mg/dL 0.50-1.04 CALCIUM (test code = 3811440024) 8.7 mg/dL 8.6-10.6 eGFR (test code = 1833351450) 118.3 mL/min/1.73m2 BERNIE (test code = BERNIE) Association of Glomerular Filtration Rate (GFR) and Staging of Kidney Disease* + --+ --+ ------+| GFR (mL/min/1.73 m2) ?| With Kidney Damage ?| ?Without Kidney Damage+ --------+ --------+ +| ?>90 ?| ?Stage one ?| ? Normal ?+ ---+ ---+ -------+| ?60-89 ?| ?Stage two ?| ? Decreased GFR ? + --+ --+ ------+| ?30-59 ?| ?Stage three ?| ? Stage three ? + --+ --+ ------+| ?15-29 ?| ?Stage four ? | ? Stage four ?+ ---+ ---+ -------+| ?<15 (or dialysis) ? ?| ?Stage five ? | ? Stage five ?+ ---+ ---+ -------+ *Each stage assumes the associated GFR level has been in effect for at least three months. ?Stages 1 to 5, with or without kidney disease, indicate chronic kidney disease. Notes: Determination of stages one and two (with eGFR >59mL/min/1.73 m2) requires estimation of kidney damage for at least three months as defined by structural or functional abnormalities of the kidney, manifested by either:Pathological abnormalities or Markers of kidney damage (including abnormalities in the composition of the blood or urine or abnormalities in imaging tests). Lab Interpretation (test code = 73202-5) Abnormal [facility] Metabolic Panel - 18 Hours After Initiation of Abgicsuzprflpc5747-53-58 02:49:01* Test Item Value Reference Range Interpretation Comme nts NA (test code = 6627214220) 136 mmol/L 135-145 K (test code = 3302317058) 3.6 mmol/L 3.5-5.0 CL (test code = 7196676944) 106 mmol/L 98-108 CO2 TOTAL (test code = 9353479058) 20 mmol/L 23-31 L AGAP (test code = 4832710618) 10 2-16 BUN (test code = 0297448568) 9 mg/dL 7-23 GLUCOSE (test code = 3987329045) 71 mg/dL 70-110 CREATININE (test code = 3452752907) 0.75 mg/dL 0.50-1.04 TOTAL BILI (test code = 4971936456) 0.6 mg/dL 0.1-1.1 CALCIUM (test code = 2667083770) 9.4 mg/dL 8.6-10.6 T PROTEIN (test code = 2643916673) 6.5 g/dL 6.3-8.2 ALBUMIN (test code = 5569456695) 3.8 g/dL 3.5-5.0 ALK PHOS (test code = 4341352821) 59 U/L 34-122 ALTv (test code = 1742-6) 23 U/L 5-35 AST(SGOT) (test code = 7012052745) 31 U/L 13-40 eGFR (test code = 7336357041) 98.5 mL/min/1.73m2 BERNIE (test code = BERNIE) Association of Glomerular Filtration Rate (GFR) and Staging of Kidney Disease* + --+ --+ ------+| GFR (mL/min/1.73 m2) ?| With Kidney Damage ?| ?Without Kidney Damage+ --------+ --------+ +| ?>90 ?| ?Stage one ?| ? Normal ?+ ---+ ---+ -------+| ?60-89 ?| ?Stage two ?| ? Decreased GFR ? + --+ --+ ------+| ?30-59 ?| ?Stage three ?| ? Stage three ? + --+ --+ ------+| ?15-29 ?| ?Stage four ? | ? Stage four ?+ ---+ ---+ -------+| ?<15 (or dialysis) ? ?| ?Stage five ? | ? Stage five ?+ ---+ ---+ -------+ *Each stage assumes the associated GFR level has been in effect for at least three months. ?Stages 1 to 5, with or without kidney disease, indicate chronic kidney disease. Notes: Determination of stages one and two (with eGFR >59mL/min/1.73 m2) requires estimation of kidney damage for at least three months as defined by structural or functional abnormalities of the kidney, manifested by either:Pathological abnormalities or Markers of kidney damage (including abnormalities in the composition of the blood or urine or abnormalities in imaging tests). Lab Interpretation (test code = 74405-2) Abnormal [facility]et[facility] - Follow Up Testing at 4H Post Ingestion If Aogply9156-36-98 02:49:01* Test Item Value Reference Range Interpretation Comme nts ACETAMINOP (test code = 4170093730) 12.0 ug/mL 10.0-30.0 BERNIE (test code = BERNIE) Toxic: Greater reji n 200 ug/mL @ 4 hour post ingestion or greater than 50 ug/mL @ 12 hour post ingestion Lab Interpretation (test code = 32621-0) Normal [facility] UNCONJUGATED/BILI [id number] 02:49:01* Test Item Value Reference Range Interpretation Comme nts BILI CONJ (test code = 6487864602) 0.0 mg/dL 0.0-0.3 BILI UNCON (test code = 0288119382) 0.5 mg/dL 0.1-1.1 Lab Interpretation (test cod e = 88209-1) Normal [facility] PAN[facility] (53865) (ALB,T.PRO,BILI T,BU/BC,ALT,AST,ALK PHOS)2023-05-17 22:30:22* Test Item Value Reference Range Interpretation Comme nts TOTAL BILI (test code = 2695720784) 0.7 mg/dL 0.1-1.1 BILI UNCON (test code = 1767185609) 0.5 mg/dL 0.1-1.1 BILI CONJ (test code = 2061800580) 0.0 mg/dL 0.0-0.3 T PROTEIN (test code = 2875629011) 7.0 g/dL 6.3-8.2 ALBUMIN (test code = 9259859607) 4.1 g/dL 3.5-5.0 ALK PHOS (test code = 8425218419) 63 U/L 34-122 ALTv (test code = 1742-6) 22 U/L 5-35 AST(SGOT) (test code = 8522557873) 48 U/L 13-40 H Lab Interpretation (test cod e = 61364-2) Abnormal [facility] ArlingtonAcetaminophen - 18 Hours After Initiation of Nfhjrcvcuotuwt0875-03-69 21:33:36* Test Item Value Reference Range Interpretation Comme nts ACETAMINOP (test code = 3842353079) 40.0 ug/mL 10.0-30.0 H BERNIE (test code = BERNIE) Toxic: Greater reji n 200 ug/mL @ 4 hour post ingestion or greater than 50 ug/mL @ 12 hour post ingestion Lab Interpretation (test code = 65028-2) Abnormal [facility] METABOLIC PANEL (NA, K, CL, CO2, GLUCOSE, BUN, CREATININE, CA)2023-05-17 20:58:29* Test Item Value Reference Range Interpretation Comme nts NA (test code = 8842234842) 136 mmol/L 135-145 K (test code = 1081936266) 3.1 mmol/L 3.5-5.0 L CL (test code = 9715027278) 106 mmol/L 98-108 CO2 TOTAL (test code = 0867084174) 17 mmol/L 23-31 L AGAP (test code = 9893159870) 13 2-16 BUN (test code = 5471005181) 7 mg/dL 7-23 GLUCOSE (test code = 5000073714) 97 mg/dL 70-110 CREATININE (test code = 4898836981) 0.64 mg/dL 0.50-1.04 CALCIUM (test code = 9884607633) 9.2 mg/dL 8.6-10.6 eGFR (test code = 6844058657) 118.3 mL/min/1.73m2 BERNIE (test code = BERNIE) Association of Glomerular Filtration Rate (GFR) and Staging of Kidney Disease* + --+ --+ ------+| GFR (mL/min/1.73 m2) ?| With Kidney Damage ?| ?Without Kidney Damage+ --------+ --------+ +| ?>90 ?| ?Stage one ?| ? Normal ?+ ---+ ---+ -------+| ?60-89 ?| ?Stage two ?| ? Decreased GFR ? + --+ --+ ------+| ?30-59 ?| ?Stage three ?| ? Stage three ? + --+ --+ ------+| ?15-29 ?| ?Stage four ? | ? Stage four ?+ ---+ ---+ -------+| ?<15 (or dialysis) ? ?| ?Stage five ? | ? Stage five ?+ ---+ ---+ -------+ *Each stage assumes the associated GFR level has been in effect for at least three months. ?Stages 1 to 5, with or without kidney disease, indicate chronic kidney disease. Notes: Determination of stages one and two (with eGFR >59mL/min/1.73 m2) requires estimation of kidney damage for at least three months as defined by structural or functional abnormalities of the kidney, manifested by either:Pathological abnormalities or Markers of kidney damage (including abnormalities in the composition of the blood or urine or abnormalities in imaging tests). Lab Interpretation (test code = 78928-0) Abnormal [facility] ArlingtonProthrombin Time (PTT) / INR - 18 Hours After Initiation of Qaikctvmmfjyit2872-16-94 20:58:08* Test Item Value Reference Range Interpretation Comme [facility] PROTIME PATIENT (test code = 5964-2) 12.5 See_Comment [Automated [employer]] The system which generated this result transmitted reference range: 10.1 - 12.6 Seconds. The reference range was not used to interpret this result as normal/abnormal. INR (test code = 6301-6) 1.1 Normal INR <1.1; Warfarin Therapeutic range 2.0 to 3.0 or 2.5 to 3.5, depending upon the indications. Lab Interpretation (test code = 68459-9) Normal [facility] ArlingtonPREGNANCY TEST, [id number] 18:12:08* Test Item Value Reference Range Interpretation Comme [facility] PREG SERUM (test code = 8038320068) Negative BERNIE (test code = BERNIE) Less than 10 IU/L. ?If low titer or ectopic is suspected, resubmit specimen in 48-72 hours. [facility] DRUG (IMMUNOASSAY) - COMPREHENSIVE DRUG [id number] 16:27:14* Test Item Value Reference Range Interpretation Comme nts FAHAD S (test code = 7113774370) Negative Negative BENZO S (test code = 0938512250) Negative Negative TRICYCLIC (test code = 6706083682) Negative Negative BERNIE (test code = BERNIE) Serum Drug Screen Cutoff Ranges Barbiturates ? ? - 3 mcg/mLBenzodiazepines ?- 50 ng/mLTCA ?- 300 ng/mL Test developed and characteristics determined by [facility] Laboratory Services. The results are to be used only for medical (i.e., treatment) purposes. Unconfirmed screening results must not be used for non-medical purposes (e.g., employment testing, legal testing). Lab Interpretation (test code = 17226-4) Normal [facility] ArlingtonOSMOLALITY, SERUM OR [id number] 14:22:36 * Test Item Value Reference Range Interpretation Comme nts OSMOLALITY (test code = 2692-2) 295 See_Comment [Automated messa ge] The system which generated this result transmitted reference range: 278 - 305 mOsm/kg. The reference range was not used to interpret this result as normal/abnormal. Lab Interpretation (test code = 80973-3) Normal [facility] ArlingtonProthrombin Time / [id number] 13:47:54* Test Item Value Reference Range Interpretation Comme nts PROTIME PATIENT (test code = 5964-2) 13.5 See_Comment H [Automated [employer]] The system which generated this result transmitted reference range: 10.1 - 12.6 Seconds. The reference range was not used to interpret this result as normal/abnormal. INR (test code = 6301-6) 1.2 Normal INR <1.1; Warfarin Therapeutic range 2.0 to 3.0 or 2.5 to 3.5, depending upon the indications. Lab Interpretation (test code = 93279-0) Abnormal [facility] ArlingtonCOMP. METABOLIC PANEL (39237)2023-05-17 13:12:27* Test Item Value Reference Range Interpretation Comme nts NA (test code = 9896778697) 138 mmol/L 135-145 K (test code = 4588735999) 3.9 mmol/L 3.5-5.0 CL (test code = 9278717079) 107 mmol/L 98-108 CO2 TOTAL (test code = 6711680632) 15 mmol/L 23-31 L AGAP (test code = 8994467525) 16 2-16 BUN (test code = 1620693340) 6 mg/dL 7-23 L GLUCOSE (test code = 9107856983) 115 mg/dL 70-110 H CREATININE (test code = 1797337216) 0.48 mg/dL 0.50-1.04 L TOTAL BILI (test code = 3863673281) 0.5 mg/dL 0.1-1.1 CALCIUM (test code = 1671252916) 8.8 mg/dL 8.6-10.6 T PROTEIN (test code = 7382273913) 7.3 g/dL 6.3-8.2 ALBUMIN (test code = 0745981328) 4.4 g/dL 3.5-5.0 ALK PHOS (test code = 1247837695) 57 U/L 34-122 ALTv (test code = 1742-6) 23 U/L 5-35 AST(SGOT) (test code = 9201361223) 29 U/L 13-40 eGFR (test code = 6704081844) 164.9 mL/min/1.73m2 BERNIE (test code = BERNIE) Association of Glomerular Filtration Rate (GFR) and Staging of Kidney Disease* + --+ --+ ------+| GFR (mL/min/1.73 m2) ?| With Kidney Damage ?| ?Without Kidney Damage+ --------+ --------+ +| ?>90 ?| ?Stage one ?| ? Normal ?+ ---+ ---+ -------+| ?60-89 ?| ?Stage two ?| ? Decreased GFR ? + --+ --+ ------+| ?30-59 ?| ?Stage three ?| ? Stage three ? + --+ --+ ------+| ?15-29 ?| ?Stage four ? | ? Stage four ?+ ---+ ---+ -------+| ?<15 (or dialysis) ? ?| ?Stage five ? | ? Stage five ?+ ---+ ---+ -------+ *Each stage assumes the associated GFR level has been in effect for at least three months. ?Stages 1 to 5, with or without kidney disease, indicate chronic kidney disease. Notes: Determination of stages one and two (with eGFR >59mL/min/1.73 m2) requires estimation of kidney damage for at least three months as defined by structural or functional abnormalities of the kidney, manifested by either:Pathological abnormalities or Markers of kidney damage (including abnormalities in the composition of the blood or urine or abnormalities in imaging tests). Lab Interpretation (test code = 98239-2) Abnormal [facility] ArlingtonCREATINE [id number] 08:39:41* Test Item Value Reference Range Interpretation Comme nts CK (test code = 8024275029) 269 U/L 33-194 H Lab Interpretation (test cod e = 81144-5) Abnormal [facility] ArlingtonACETAMINOPHEN2023-07-12 06:48:49* Test Item Value Reference Range Interpretation Comme nts ACETAMINOP (test code = 1924481183) 395.0 ug/mL 10.0-30.0 H BERNIE (test code = BERNIE) Toxic: Greater reji n 200 ug/mL @ 4 hour post ingestion or greater than 50 ug/mL @ 12 hour post ingestion Lab Interpretation (test code = 59552-6) Abnormal [facility] ArlingtonCBC WITH [id number] 02:31:47* Test Item Value Reference Range Interpretation Comme nts WBC (test code = 6690-2) 12.52 See_Comment H [Automated [employer]] The system which generated this result transmitted reference range: 4.30 - 11.10 10*3/?L. The reference range was not used to interpret this result as normal/abnormal. RBC (test code = 789-8) 4.44 See_Comment [Automated [employer]] The system which generated this result transmitted reference range: 3.93 - 5.25 10*6/?L. The reference range was not used to interpret this result as normal/abnormal. HGB (test code = 718-7) 13.9 g/dL 11.6-15.0 HCT (test code = 4544-3) 40.0 % 35.7-45.2 MCV (test code = 787-2) 90.1 fL 80.6-95.5 MCH (test code = 785-6) 31.3 pg 25.9-32.8 MCHC (test code = 786-4) 34.8 g/dL 31.6-35.1 RDW-SD (test code = 23716-7) 40.5 fL 39.0-49.9 RDW-CV (test code = 788-0) 12.5 % 12.0-15.5 PLT (test code = 777-3) 368 See_Comment H [Automated messa ge] The system which generated this result transmitted reference range: 166 - 358 10*3/?L. The reference range was not used to interpret this result as normal/abnormal. MPV (test code = 74253-9) 9.6 fL 9.5-12.9 NRBC/100 WBC (test code = 6861894273) 0.0 See_Comment [Automated [employer] ssage] The system which generated this result transmitted reference range: 0.0 - 10.0 /100 WBCs. The reference range was not used to interpret this result as normal/abnormal. NRBC x10^3 (test code = 4618526840) See_Comment [Automated messa ge] The system which generated this result transmitted reference range: 10*3/?L. The reference range was not used to interpret this result as normal/abnormal. GRAN MAT (NEUT) % (test code = 770-8) 39.9 % IMM GRAN % (test code = 4074744832) 0.20 % LYMPH % (test code = 736-9) 45.5 % MONO % (test code = 5905-5) 11.1 % EOS % (test code = 713-8) 2.6 % BASO % (test code = 706-2) 0.7 % GRAN MAT x10^3(ANC) (test code = 2420786732) 4.98 10*3/uL 1.88-7.09 IMM GRAN x10^3 (test code = 0587531340) 0.03 10*3/uL 0.00-0.06 LYMPH x10^3 (test code = 731-0) 5.70 10*3/uL 1.32-3.29 H MONO x10^3 (test code = 742-7) 1.39 10*3/uL 0.33-0.92 H EOS x10^3 (test code = 711-2) 0.33 10*3/uL 0.03-0.39 BASO x10^3 (test code = 704-7) 0.09 10*3/uL 0.01-0.07 H Lab Interpretation (test code = 47251-5) Abnormal [facility] ArlingtonSALICYLATE2023-07-12 02:28:56 SALICYLATE<10mg/L05/16/2023 9:28 PM [facility]ORYTherapeutic Range: ? Analgesic and Antipyretic Use ? 20- 100 mg/L ? ? Anti-Inflammatory Use ? 100-250 mg/L Toxic Range: ? Greater than 300 mg/LUnVal Verde Regional Medical CenterACETAMINOPHEN2023-07-12 02:28:46* Test Item Value Reference Range Interpretation Comme nts ACETAMINOP (test code = 8401307858) 10.0-30.0 H BERNIE (test code = BERNIE) Toxic: Greater reji n 200 ug/mL @ 4 hour post ingestion or greater than 50 ug/mL @ 12 hour post ingestion Lab Interpretation (test code = 93946-1) Abnormal [facility] ArlingtonETHANOL2023-07-12 02:19:36* Test Item Value Reference Range Interpretation Comme nts ALCOHOL (test code = 7751390763) 244 mg/dL BERNIE (test code = BERNIE) <10 Rmuerktx15-254 Toxic>100 Depression of [employer] T[employer]IST>400 Fatalities Reported [facility] ArlingtonCOM. METABOLIC PANEL (19013)2023-05-17 02:18:56* Test Item Value Reference Range Interpretation Comme nts NA (test code = 3572007259) 142 mmol/L 135-145 K (test code = 4690822065) 4.3 mmol/L 3.5-5.0 CL (test code = 5865264819) 104 mmol/L 98-108 CO2 TOTAL (test code = 8397960280) 18 mmol/L 23-31 L AGAP (test code = 1314909131) 20 2-16 H BUN (test code = 7352196777) 14 mg/dL 7-23 GLUCOSE (test code = 5829278677) 103 mg/dL 70-110 CREATININE (test code = 9680748128) 0.72 mg/dL 0.50-1.04 TOTAL BILI (test code = 3561860622) 0.7 mg/dL 0.1-1.1 CALCIUM (test code = 8820703409) 10.0 mg/dL 8.6-10.6 T PROTEIN (test code = 0280965518) 8.5 g/dL 6.3-8.2 H ALBUMIN (test code = 6900418283) 5.2 g/dL 3.5-5.0 H ALK PHOS (test code = 5650365383) 98 U/L 34-122 ALTv (test code = 1742-6) 25 U/L 5-35 AST(SGOT) (test code = 9255964992) 37 U/L 13-40 eGFR (test code = 1139874419) 103.3 mL/min/1.73m2 BERNIE (test code = BERNIE) Association of Glomerular Filtration Rate (GFR) and Staging of Kidney Disease* + --+ --+ ------+| GFR (mL/min/1.73 m2) ?| With Kidney Damage ?| ?Without Kidney Damage+ --------+ --------+ +| ?>90 ?| ?Stage one ?| ? Normal ?+ ---+ ---+ -------+| ?60-89 ?| ?Stage two ?| ? Decreased GFR ? + --+ --+ ------+| ?30-59 ?| ?Stage three ?| ? Stage three ? + --+ --+ ------+| ?15-29 ?| ?Stage four ? | ? Stage four ?+ ---+ ---+ -------+| ?<15 (or dialysis) ? ?| ?Stage five ? | ? Stage five ?+ ---+ ---+ -------+ *Each stage assumes the associated GFR level has been in effect for at least three months. ?Stages 1 to 5, with or without kidney disease, indicate chronic kidney disease. Notes: Determination of stages one and two (with eGFR >59mL/min/1.73 m2) requires estimation of kidney damage for at least three months as defined by structural or functional abnormalities of the kidney, manifested by either:Pathological abnormalities or Markers of kidney damage (including abnormalities in the composition of the blood or urine or abnormalities in imaging tests). Lab Interpretation (test code = 14448-8) Abnormal [facility] ArlingtonPROTHROMBIN TIME / [id number] 02:07:34* Test Item Value Reference Range Interpretation Comme nts PROTIME PATIENT (test code = 5964-2) 11.6 See_Comment L [Automated [employer] ge] The system which generated this result transmitted reference range: 12.0 - 14.7 Seconds. The reference range was not used to interpret this result as normal/abnormal. INR (test code = 6301-6) 0.9 Normal INR <1.1; Warfarin Therapeutic range 2.0 to 3.0 or 2.5 to 3.5, depending upon the indications. Lab Interpretation (test code = 92789-2) Abnormal [facility] ArlingtonUrinalysis macro (dipstick) panel - Urine 2022-06-21 09:49:00* Test Item Value Reference Range Interpretation Comme nts Leukocytes (test code = Leukocytes) neg Nitrite (test code = Nitrite) neg Urobilinogen (test code = Urobilinogen) 0.2 Protein (test code = Protein) neg pH (test code = pH) 6.5 Blood (test code = Blood) neg Specific [place] (test code = Specific [place]) 1.025 Ketone (test code = Ketone) neg Bilirubin (test code = Bilirubin) neg Glucose (test code = Glucose) neg [facility] Programplease [id number] 00:00:00* Test Item Value Reference Range Interpretation Comme nts please note (test code = please note) comment [facility] Programrapid influenza virus A + B and SARS CoV + SARS CoV 2 Ag panel, IA, upper respiratory [id number] 10:24:00* Test Item Value Reference Range Interpretation Comme nts RAPID SARS COV (test code = RAPID SARS COV) negative RAPID FLU A (test code = RAP ID FLU A) negative RAPID FLU B (test code = RAP ID FLU B) negative [facility] GroupBacteria identified in Urine by [id number] 00:00:00* Test Item Value Reference Range Interpretation Comme nts Bacteria identified in Urine by Culture (test code = 630-4) no [facility] ProgramBacterial vaginosis and vaginitis DNA panel - Vaginal fluid by Probe with signal amivyadnutogc8740-87-07 00:00:00* Test Item Value Reference Range Interpretation Comme nts Atopobium vaginae DNA [Prese nce] in Vaginal fluid by EDDIE with probe detection (test code = 10926-4) low - 0 Bacterial vaginosis associat ed bacterium 2 DNA [Presence] in Vaginal fluid by EDDIE with probe detection (test code = 55246-3) low - 0 Megasphaera sp type 1 DNA [P resence] in Vaginal fluid by EDDIE with probe detection (test code = 02676-0) low - 0 Radha albicans DNA [Presen ce] in Vaginal fluid by EDDIE with probe detection (test code = 11085-1) negative negative Radha glabrata DNA [Presen ce] in Vaginal fluid by EDDIE with probe detection (test code = 79485-2) negative negative Trichomonas vaginalis DNA [P resence] in Vaginal fluid by EDDIE with probe detection (test code = 37427-4) negative negative Chlamydia trachomatis DNA [P resence] in Vaginal fluid by EDDIE with probe detection (test code = 60984-1) positive negative A Neisseria gonorrhoeae DNA [P resence] in Vaginal fluid by EDDIE with probe detection (test code = 84339-8) negative negative [facility] Outreach ProgramReagin Ab [Presence] in Serum by RPR 2021-10-20 00:00:00* Test Item Value Reference Range Interpretation Comme nts Reagin Ab [Presence] in Seru m by RPR (test code = 23721-9) non reactive non reactive [facility] ProgramHIV 1+2 Ab+HIV1 p24 Ag [Presence] in Serum or Plasma by [id number] 00:00:00* Test Item Value Reference Range Interpretation Comme nts HIV 1+2 Ab+HIV1 p24 Ag [Presence] in Serum or Plasma by Immunoassay (test code = 24117-8) non reactive non reactive [facility] Outreach ProgramHepatitis B virus surface Ag [Presence] in Serum or Plasma by Efplgrayrtn0076-27-79 00:00:00* Test Item Value Reference Range Interpretation Comme nts Hepatitis B virus surface Ag [Presence] in Serum or Plasma by Immunoassay (test code = 5196-1) negative negative [facility]hamUrinalysis macro (dipstick) panel - [id number] 11:22:00* Test Item Value Reference Range Interpretation Comme nts Leukocytes (test code = Leukocytes) small Nitrite (test code = Nitrite) neg Urobilinogen (test code = Urobilinogen) 0.2 Protein (test code = Protein) neg pH (test code = pH) 7.5 Blood (test code = Blood) neg Specific [place] (test code = Specific [place]) 1.015 Ketone (test code = Ketone) neg Bilirubin (test code = Bilirubin) neg Glucose (test code = Glucose) neg [facility] Programpregnancy test, kccbu2432-79-20 16:26:00* Test Item Value Reference Range Interpretation Comme nts HCG (test code = HCG) negative [facility]"
[2024-09-14] MEDS ORDERED: ONDANSETRON 4 MG (ODT) TAB ONE (23:15)
[2024-09-14] MEDS ORDERED: DIPHENHYDRAMINE 50 MG/ML VIAL ONE (23:32)
[2024-09-14] MEDS ORDERED: dexAMETHasone 10 MG/ML VIAL ONE (23:32)
[2024-09-14] MEDS ORDERED: NA CHLORIDE 0.9% 1,000 ML ONE (23:33)
[2024-09-14] MEDS ORDERED: METOCLOPRAMIDE 10 MG/2mL INJ ONE (23:33)
--- NOTE | 2024-09-15 00:34 | EDPHYS ---
Physician Documentation [facility] Name: Rodger Yoo Age: 24 yrs Sex: Female : 2000 Arrival Date: 09/14/2024 Time: 22:56 Bed 3 Private MD: ED Physician Riki Zuleta HPI: 09/14 23:27 This 24 yrs old Female presents to ER via Ambulatory with complaints of ec2 Vomiting - Blood Post Sx. 23:27 Patient with yesterday arrives today for evaluation patient with a tonsillectomy ec2 yesterday arrives today for evaluation of postoperative nausea as well as bleeding. Patient reports that yesterday she had a tonsillectomy, states that today she is having some nausea and vomiting and has had multiple bouts of emesis as well as blood-tinged emesis. No diarrhea symptoms. No other concerns.. 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 - Infectious Disease History:: Denies. - Social history:: Smoking status: Patient denies any tobacco usage or history of. Patient/guardian denies using alcohol, street drugs. ROS: 23:28 Constitutional: as per hpi ec2 Exam: 23:28 Constitutional: GEN: NAD Head: atraumatic Eyes: EOMI Ears: External ears are normal. ec2 Mouth: Surgical sites with intact clots. CV slight tachycardia. LUNGS: no respiratory distress ABD: non-distended SKIN: no evidence of rashes MSK: no evidence of trauma Vital Signs: 23:16 BP 117 / 81; Pulse 101; Resp 19 S; Temp 98.5; Pulse Ox 100% on R/A; Weight 56.7 kg (R); lg3 Height 5 ft. 5 in. (R); 23:37 BP 128 / 93; Pulse 104; Resp 18; Temp 98.5; Pulse Ox 100% ; Pain 0/10; bm8 09/15 01:08 BP 101 / 57; Pulse 76; Resp 17; Temp 98.5; Pulse Ox 97% on R/A; Pain 0/10; bm8 09/14 23:16 Body Mass Index 20.80 (56.70 kg, 165.1 cm) lg3 23:37 Pain Scale: Adult bm8 09/15 01:08 Pain Scale: Adult bm8 Doyle Coma Score: 09/14 23:37 Eye Response: spontaneous(4). Motor Response: obeys commands(6). Verbal Response: bm8 oriented(5). Total: 15. 09/15 01:08 Eye Response: spontaneous(4). Motor Response: obeys commands(6). Verbal Response: bm8 oriented(5). Total: 15. MDM: 09/14 23:26 Medical Screening Exam initiated ec2 23:28 Data reviewed: vital signs. ED course: Patient arrives today for evaluation of nausea ec2 and vomiting after recent tonsillectomy. Examination remarkable for nontoxic individual who is actively retching. Will place an IV and give the patient IV nausea medications. Will suspect postoperative nausea and vomiting along with possible Violet[place]-Red. 09/15 00:33 ED course: On reassessment patient with marked improvement in symptoms. Will discharge ec2 home have follow-up with her surgeon. Return precautions given.. 09/14 23:27 Order name: IV Start; Complete Time: 23:39 ec2 Administered Medications: 09/14 23:29 Drug: Ondansetron Oral Disintegrating Tablet Oral Disintegrating Tablet 4 mg PO once lg3 Route: PO; 09/15 01:09 Follow up: Response: No adverse reaction [facility] 09/14 23:39 Drug: metoCLOPramide IVP 10 mg IVP once; over 1 to 2 minutes Route: IVP; [facility]; 09/15 01:09 Follow up: Response: No adverse reaction [facility] 09/14 23:39 Drug: diphenhydrAMINE IVP 50 mg IVP once Route: IVP; Site: left antecubital; [facility] 09/15 01:09 Follow up: Response: No adverse reaction [facility] 09/14 23:39 Drug: NS 0.9% IV 1000 ml IV at 1 bolus Per protocol; to be given as a bolus over 60 jj7 minutes Route: IV; Rate: 1 bolus; Site: left antecubital; 09/15 01:09 Follow up: Response: No adverse reaction; IV Status: Completed infusion; IV Intake: bm8 1000ml 09/14 23:39 Drug: Decadron - Dexamethasone IVP 10 mg IVP once Route: IVP; Site: left antecubital; jj7 09/15 01:09 Follow up: Response: No adverse reaction bm8 Disposition Summary: 09/15/24 00:33 Discharge Ordered Notes: Location: Home ec2 Condition: Stable ec2 Diagnosis - Post Surgical Nausea and Vomiting ec2 Followup: ec2 - With: Private Physician - When: - Reason: Re-evaluation by your physician Discharge Instructions: - Discharge Summary Sheet ec2 Forms: - Medication Reconciliation Form ec2 - Antibiotic Education ec2 - Prescription Opioid Use ec2 - Patient Portal Instructions ec2 - Leadership Thank You Letter ec2 Prescriptions: - Reglan 10 mg Oral Tablet - take 1 tablet ORAL route every 6 hours take 30 minutes before meals and at ec2 bedtime; 20 tablet; Refills: 0, Product Selection Permitted Signatures: Danica Moncada RN RN lg3 Arsh Chacon RN RN jj7 Riki Zuleta MD MD ec2 Jordan Krause RN bm8
--- NOTE | 2024-09-15 00:34 | ER ---
Nurse's Notes [facility] Name: Rodger Yoo Age: 24 yrs Sex: Female : 2000 Arrival Date: 09/14/2024 Time: 22:56 Bed 3 Private MD: Diagnosis: Post Surgical Nausea and Vomiting Presentation: 09/14 23:16 Chief complaint: Patient states: tonsillectomy yesterday. vomiting X4 hr with blood lg3 tinge. Coronavirus screen: Client denies travel out of the [place] in the last 14 days. At this time, the client does not indicate any symptoms associated with coronavirus-19. Ebola Screen: No symptoms or risks identified at this time. Initial Sepsis Screen: Does the patient meet any 2 criteria? No. Patient's initial sepsis screen is negative. Does the patient have a suspected source of infection? No. Patient's initial sepsis screen is negative. Risk Assessment: Do you want to hurt yourself or someone else? Patient reports no desire to harm self or others. Onset of symptoms was September 14, 2024. 23:16 Method Of Arrival: Ambulatory lg3 23:16 Acuity: IDA 4 lg3 Triage Assessment: 23:20 General: Appears in no apparent distress. uncomfortable, Behavior is calm, cooperative. lg3 Pain: Denies pain. EENT: Denies pain. Neuro: No deficits noted. Naidu Agitation-Sedation Scale (RASS): 0 - Alert and Calm Level of Consciousness is awake, alert, obeys commands, Oriented to person, place, time, situation. Cardiovascular: No deficits noted. Denies chest pain, shortness of breath, Capillary refill < 3 seconds Clubbing of nail beds is absent JVD is absent Patient's skin is warm and dry. Respiratory: No deficits noted. Airway is patent Respiratory effort is even, unlabored, Respiratory pattern is regular, symmetrical. GI: Abdomen is flat, non-distended, Reports nausea, vomiting, blood streaked vomit. : No signs and/or symptoms were reported regarding the genitourinary system. Derm: No deficits noted. No signs and/or symptoms reported regarding the dermatologic system. Skin is intact, is healthy with good turgor, Skin is dry, Skin is normal, Skin temperature is warm. Musculoskeletal: No deficits noted. No signs and/or symptoms reported regarding the musculoskeletal system. Circulation, motion, and sensation intact. Range of motion: intact in all extremities. 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 - Infectious Disease History:: Denies. - Social history:: Smoking status: Patient denies any tobacco usage or history of. Patient/guardian denies using alcohol, street drugs. Screenin:33 [facility] ED Fall Risk Assessment (Adult) History of falling in the last 3 months, bm8 including since admission No falls in past 3 months (0 pts) Confusion or Disorientation No (0 pts) Intoxicated or Sedated No (0 pts) Impaired Gait No (0 pts) Mobility Assist Device Used No (0 pt) Altered Elimination No (0 pt) Score/Fall Risk Level 0 - 2 = Low Risk Oriented to surroundings, Maintained a safe environment, Educated pt \T\ family on fall prevention, incl call for assistance when getting out of bed, Assessed \T\ reinforced patient's understanding of fall precautions, Hourly rounding (assess needs \T\ fall precautionary measures) done, Used ambulatory aids as needed (educated on \T\ assisted with), Used gait belt as appropriate. Abuse screen: Denies threats or abuse. Nutritional screening: No deficits noted. Tuberculosis screening: No symptoms or risk factors identified. Assessment: 23:33 Reassessment: Patient and/or family updated on plan of care and expected duration. Pain bm8 level reassessed. Patient is alert, oriented x 3, equal unlabored respirations, skin warm/dry/pink. Pain: Denies pain. GI: Reports intolerance of fluids, intolerance of food, nausea, vomiting. 09/15 01:08 Reassessment: Patient appears in no apparent distress at this time. Patient and/or bm8 family updated on plan of care and expected duration. Pain level reassessed. Patient is alert, oriented x 3, equal unlabored respirations, skin warm/dry/pink. Patient denies pain at this time. Patient states feeling better. Patient states symptoms have improved. GI: Patient currently denies abdominal pain, nausea, pain, vomiting. Vital Signs: 09/14 23:16 BP 117 / 81; Pulse 101; Resp 19 S; Temp 98.5; Pulse Ox 100% on R/A; Weight 56.7 kg (R); lg3 Height 5 ft. 5 in. (R); 23:37 BP 128 / 93; Pulse 104; Resp 18; Temp 98.5; Pulse Ox 100% ; Pain 0/10; bm8 09/15 01:08 BP 101 / 57; Pulse 76; Resp 17; Temp 98.5; Pulse Ox 97% on R/A; Pain 0/10; bm8 09/14 23:16 Body Mass Index 20.80 (56.70 kg, 165.1 cm) lg3 23:37 Pain Scale: Adult bm8 09/15 01:08 Pain Scale: Adult bm8 [place] Coma Score: 09/14 23:37 Eye Response: spontaneous(4). Motor Response: obeys commands(6). Verbal Response: bm8 oriented(5). Total: 15. 09/15 01:08 Eye Response: spontaneous(4). Motor Response: obeys commands(6). Verbal Response: bm8 oriented(5). Total: 15. ED Course: 09/14 22:58 Patient arrived in ED. ra3 23:09 Riki Zuleta MD is Attending Physician. ec2 23:20 Triage completed. lg3 23:20 Arm band placed on left wrist. lg3 23:29 Arsh Chacon RN is Primary Nurse. jj7 23:33 Patient has correct armband on for positive identification. Placed in gown. Bed in low bm8 position. Call light in reach. Side rails up X2. Adult w/ patient. Client placed on continuous cardiac and pulse oximetry monitoring. NIBP monitoring applied. Pulse ox on. NIBP on. Door closed. Noise minimized. Warm blanket given. Pillow given. Verbal reassurance given. Head of bed elevated. 23:33 No provider procedures requiring assistance completed. Inserted saline lock: 20 gauge bm8 in left antecubital area, using aseptic technique. Blood collected. Flushed with 10 mL NS. Patient maintains SpO2 saturation greater than 95% on room air. 09/15 01:08 Provided Education on: post er care. bm8 01:08 IV discontinued, intact, bleeding controlled, No redness/swelling at site. Pressure bm8 dressing applied. Administered Medications: 09/14 23:29 Drug: Ondansetron Oral Disintegrating Tablet Oral Disintegrating Tablet 4 mg PO once lg3 Route: PO; 09/15 01:09 Follow up: Response: No adverse reaction bm8 09/14 23:39 Drug: metoCLOPramide IVP 10 mg IVP once; over 1 to 2 minutes Route: IVP; [facility]; 09/15 01:09 Follow up: Response: No adverse reaction bm8 09/14 23:39 Drug: diphenhydrAMINE IVP 50 mg IVP once Route: IVP; Site: left antecubital; [facility] 09/15 01:09 Follow up: Response: No adverse reaction bm8 09/14 23:39 Drug: NS 0.9% IV 1000 ml IV at 1 bolus Per protocol; to be given as a bolus over 60 jj7 minutes Route: IV; Rate: 1 bolus; Site: left antecubital; 09/15 01:09 Follow up: Response: No adverse reaction; IV Status: Completed infusion; IV Intake: bm8 1000ml 09/14 23:39 Drug: Decadron - Dexamethasone IVP 10 mg IVP once Route: IVP; Site: left antecubital; [facility] 09/15 01:09 Follow up: Response: No adverse reaction bm8 Medication: 09/14 23:33 VIS not applicable for this client. bm8 Intake: 09/15 01:09 IV: 1000ml; Total: 1000ml. bm8 Outcome: 00:33 Discharge ordered by . ec2 01:08 Discharged to home ambulatory, with family, bm8 01:08 Condition: stable 01:08 Discharge instructions given to patient, family, Instructed on discharge instructions, follow up and referral plans. no drinking with medication, no driving heavy equipment, medication usage, safety practices, Demonstrated understanding of instructions, follow-up care, medications, Prescriptions given X 1, 01:11 Patient left the ED. bm8 Signatures: Danica Moncada RN RN lg3 Arsh Chacon RN RN jj7 Riki Zuleta MD MD ec2 Lupis Plunkett 3 Jordan Krause RN RN bm8
[2024-09-15 02:14] VITALS: TEMP 98.5
[2024-09-15 02:16] VITALS: BP 101/57; O2SAT 97
== END 2024-09-15 01:11 | disposition home or self-care (01) ==
LOC: ER 22:56
DX: K91.89 Other postprocedural complications and disorders of digestive system (principal); Z98.890 Other specified postprocedural states
CPT/HCPCS: 96361; 96375; 96374; 99284; Q0162; J2765; J1200; J1100; J7030